=== PATIENT | male | born 1965 | race Caucasian/White ===

== ENCOUNTER 2018-07-28 12:31 | Day surgery (SDC) | END 2018-07-28 17:23 | disposition home or self-care (01) ==

== ENCOUNTER 2019-01-12 06:21 | Day surgery (SDC) | payer OTHER ==
[~2019-01-12] VITALS: Ht 185.4 cm; Wt 87.4 kg
[2019-01-12] VITALS (13 sets, daily range): BP systolic 96–143; BP diastolic 59–89; PULSE 52–68; RESP 13–20; Ht 185.4 cm; Wt 87.4 kg
[~2019-01-12 06:21] MED LIST: ASPIRIN; NORVIR; REYTAZ; TRUVADA; wellbutrin
[2019-01-12] MEDS ORDERED: CEFAZOLIN 2 GM/50 ML (PMX) 50 ML IVPB ONE (07:00)
[2019-01-12] MEDS ORDERED: LACTATED RINGER'S 1,000 ML IV* SCH (07:00)
[2019-01-12] MEDS ORDERED: TEST5GEL TD (07:53)
[2019-01-12] MEDS ORDERED: BUPR300T48 PO (07:54)
[2019-01-12] MEDS ORDERED: RANI300T3 PO (07:54)
[2019-01-12] MEDS ORDERED: ASPI81TA52 PO (07:54)
[2019-01-12] MEDS ORDERED: BIKTARVY PO (07:59)
[2019-01-12] MEDS ORDERED: BUPIVACAINE 0.25% (MPF) 30 ML INJ ONE (09:00)
--- NOTE | 2019-01-12 09:54 | PREAC ---
Date/Time of Note Date/Time of Note DATE: 01/12/19 TIME: 09:51 Anesthesia Eval and Record Evaluation Time Pre-Procedure Interview DATE: 01/12/19 TIME: 09:51 Age 53 Sex male NPO: 8 hrs Preoperative diagnosis left inguinal hernia Planned procedure open left inguinal hernia repair Past Medical History Past Medical History: Includes Psych: Depression Infection(s): HIV Surgery & Anesthesia Issues No known issue Meds Anticoagulation: No Beta Santos within 24 hr: No Reason Beta Santos not given: Pt. not on B-Santos Reported Medications [Biktarvy] No Conflict Check, 50 MG PO DAILY [id number] 01/12/19 Aspirin (Low Dose Aspirin) 81 Mg Tablet.dr, 81 MG PO DAILY, #30 TAB 01/12/19 Bupropion Hcl* (Wellbutrin XL*) 300 Mg Tab.sr.24h, 300 MG PO DAILY, TAB.SA 01/12/19 Ranitidine Hcl* (Zantac*) 300 Mg Tablet, 300 MG PO HS, #30 TAB 01/12/19 Testosterone* (Androgel*) 1%-5GM Gel..ea., 5 GM TD DAILY, PACKET 01/12/19 Discontinued Reported Medications [Aspirin] No Conflict Check 07/28/18 [Truvada] No Conflict Check 07/28/18 [Norvir] No Conflict Check 07/28/18 [Reytaz] No Conflict Check 07/28/18 [wellbutrin] No Conflict Check 07/28/18 Current Medications Lactated Ringer's 1,000 ml @ 75 mls/hr [id number] IV* ; Start 01/12/19 at 07:00 Meds reviewed: Yes Allergies Coded Allergies: No Known Allergy (Unverified , 01/12/19) Allergies Reviewed: Yes Labs/Studies Labs Reviewed: Reviewed by anesthesiologist test: N/A Pre-procedure Exam Last vitals Vital Signs Date Temp Pulse Resp B/P (MAP) Pulse Ox O2 O2 Flow FiO2 Time Delivery Rate 01/12/19 97.8 52 16 96/60 (72) 98 Room Air 07:34 Airway: Adequate mouth opening, Adequate thyromental dist Mallampati: Mallampati II Teeth: Normal Lung: Normal Heart: Normal ASA Physical Status ASA physical status: 2 Emergency: None Planned Anesthetic General/MAC: ETT Nerve block: TAP (left) Planned Pain Management Single shot nerve block, Parenteral pain med Pre-operative Attestations Prior to commencing anesthesia and surgery, the patient was re-evaluated, there was verification of: *The patient's identity *The results of appropriate recent lab work and preoperative vital signs *The above evaluation not changing prior to induction *Anesthetic plan, risk benefits, alternative and complications discussed with patient/family; questions answered; patient/family understands, accepts and wishes to proceed. SHIVANI MOODY MD Jan 12, 2019 09:54
[2019-01-12] MEDS ORDERED: HYDROmorphONE 1 MG/5 ML IV SYRINGE IV PRN ×3 (10:00)
[2019-01-12] MEDS ORDERED: MEPERIDINE 25 MG INJ IV PRN (10:00)
[2019-01-12] MEDS ORDERED: PROPOFOL 200 MG INJ ONE (10:00)
[2019-01-12] MEDS ORDERED: FENTAnyl 50 MCG/ML VIAL IV PRN ×3 (10:00)
[2019-01-12] MEDS ORDERED: PROCHLORPERAZINE 10 MG INJ IV PRN (10:00)
[2019-01-12] MEDS ORDERED: DIPHENHYDRAMINE 50 MG INJ IV PRN (10:00)
[2019-01-12] MEDS ORDERED: SEVOFLURANE 15 MIN ONE (10:00)
[2019-01-12] MEDS ORDERED: OXYCODONE/ACETAMINOPHEN (5/325) TAB PO PRN (10:00)
[2019-01-12] MEDS ORDERED: ONDANSETRON 4 MG INJ IV PRN (10:00)
[2019-01-12] MEDS ORDERED: SUCCINYLCHOLINE CHLORIDE 100 MG/5 ML SYG IV ONE (10:05)
[2019-01-12] MEDS ORDERED: ROCURONIUM 50 MG INJ ONE (10:05)
[2019-01-12] MEDS ORDERED: PROPOFOL 20 ML ONE (10:05)
[2019-01-12] MEDS ORDERED: LIDOCAINE 2% (SDV) 5 ML INJ ONE (10:05)
[2019-01-12] MEDS ORDERED: FENTAnyl 50 MCG/ML VIAL ONE (10:06)
[2019-01-12] MEDS ORDERED: MIDAZOLAM 1 MG/ML 2 ML INJ ONE (10:06)
[2019-01-12] MEDS ORDERED: ROPIVACAINE 0.5 % 30 ML VIAL ONE (10:17)
[2019-01-12] MEDS ORDERED: DEXAMETHASONE 4 MG/ML 5 ML INJ ONE (10:23)
[2019-01-12] MEDS ORDERED: ONDANSETRON 4 MG INJ ONE (10:23)
[2019-01-12] MEDS ORDERED: FAMOTIDINE 20 MG INJ ONE (10:23)
[2019-01-12] MEDS ORDERED: CEFAZOLIN 1 GM INJ ONE ×2 (10:23→10:27)
[2019-01-12] MEDS ORDERED: HYDROmorphONE 2 MG/ML SYG ONE (10:31)
[2019-01-12] MEDS ORDERED: GLYCOPYRROLATE 0.4 MG INJ ONE (11:04)
[2019-01-12] MEDS ORDERED: NEOSTIGMINE 10 MG INJ ONE (11:04)
--- NOTE | 2019-01-12 11:19 | OPR ---
Date/Time of Note Date/Time of Note DATE: 01/12/19 TIME: 11:17 Operative Report Procedure Date: Jan 12, 2019 Preoperative Diagnosis incarcerated left inguinal hernia Postoperative Diagnosis same Operation/Procedure Performed open left incarcerated inguinal hernia repair with medium ultrproplug hernia system mesh Surgeon see signature line Transport Nurse none Anesthesia Type: general Estimated Blood Loss: 0 - 10 ml's Transfusion none Specimen none Grafts/Implants none Complications none Pt Condition Post Procedure: stable Indications This is a 53-year-old male with an incarcerated left inguinal hernia. He also has HIV. Risks versus benefits were discussed. Potential complications including but not limited to bleeding infection recurrence of mesh mesh infection and pain were discussed due to his HIV status these risks are slightly increased. Patient expressed understanding consents to the operation. Procedure Description Patient is taken to the OR and prepped and draped in usual sterile fashion. Surgical time was performed. IV antibiotics were given. Left inguinal oblique incision was made with a 10 blade. Dissection with cautery was carried onto the fascia. The external fascia is open with a 15 blade. This incision was extended medial fairly lateral sparely with Metzenbaum scissors. Cord structures identified and encircled with a Humaira drain. Incarcerated indirect hernia is identified. Lysis of adhesions performed and the hernia is then manually reduced. This defect is then bolstered with the disc portion of the ultra pro hernia system mesh. The disc is secured in place with a running 0 Prolene from the pubic tubercle along the shelving of the inguinal ligament. Superiorly the disc is secured to enter oblique with interrupted 3-0 Vicryl. Onlay mesh is secured in a sterile fashion with a running 0 Prolene from the pubic tubercle along the shelving is unlimited. Straps are created re approximate around the cord structures to recreate the inguinal ring with interrupted 0 Prolene. Onlay mesh was secured to enter oblique with interrupted 0 Vicryl. Externally fascia is closed with running 3-0 Vicryl. Mark's fascia is closed with interrupted Vicryl. Skin was closed using a inzorb observable skin stapler. A tap block was provided by the anesthesiology at the beginning of the case. Steri-Strips and dry dressings were applied per [place] READ Jan 12, 2019 11:19
[2019-01-12] MEDS ORDERED: HYDROCODONE/APAP (5/325) TAB PO ONE (11:30)
--- NOTE | 2019-01-12 11:39 | PAC ---
Date/Time of Note Date/Time of Note DATE: 01/12/19 TIME: 11:38 Post-Anesthesia Notes Post-Anesthesia Note Last documented vital signs Vital Signs Date Temp Pulse Resp B/P (MAP) Pulse Ox O2 O2 Flow FiO2 Time Delivery Rate 01/12/19 97.8 52 16 96/60 (72) 98 Room Air 07:34 Activity: WNL Respiratory function: WNL Cardiovascular function: WNL Mental status: Baseline Pain reasonably controlled: Yes Hydration appropriate: Yes Nausea/Vomiting absent: Yes Comments BP: 123/65 HR: 70 RR: 15 T: 98.3 SaO2: 97% SHIVANI MOODY MD Jan 12, 2019 11:38
== END 2019-01-12 14:00 | disposition home or self-care (01) ==
LOC: SDS 06:21
PROVIDERS: ATTEND Surgery
DX: K40.30 Unilateral inguinal hernia, with obstruction, without gangrene, not specified as recurrent (principal)
CPT/HCPCS: 49507; C1781; J0690; J1100; J1170; J2250; J2405; J2795; J3010; Z7512; Z7610; J2710